=== PATIENT | male | born 1970 | race Caucasian/White ===

== ENCOUNTER 2016-11-15 12:46 | Day surgery (SDC) | payer OTHER ==
[2016-11-15] MEDS ORDERED: TRIAMCINOLONE ACETONIDE 40 MG/ML SUS ONE (14:00)
[2016-11-15 14:35] VITALS: BP 137/83; PULSE 65; RESP 14; TEMP 97.6; O2SAT 97
== END 2016-11-15 14:52 | disposition home or self-care (01) | DRG 552 ==
LOC: SURG 12:46
PROVIDERS: ATTEND Nurse Anesthetist, Certified Registered
DX: M54.42 Lumbago with sciatica, left side (principal); M54.41 Lumbago with sciatica, right side
CPT/HCPCS: J3300

== ENCOUNTER 2017-03-07 10:31 | Day surgery (SDC) | payer OTHER ==
[2017-03-07] MEDS ORDERED: BUPIVACAINE HCL 0.5% MPF 10 ML SOL ONE (11:20)
[2017-03-07] MEDS: TRIAMCINOLONE ACETONIDE 40 MG/ML SUS ONE ×4 (11:27→11:47)
[2017-03-07 12:01] VITALS: BP 107/89; PULSE 55; RESP 20; TEMP 97.6; O2SAT 97
== END 2017-03-07 12:11 | disposition home or self-care (01) | DRG 547 ==
LOC: SURG 10:31
PROVIDERS: ATTEND Nurse Anesthetist, Certified Registered
DX: M48.8X6 Other specified spondylopathies, lumbar region (principal); M54.5 Low back pain
CPT/HCPCS: J3300

== ENCOUNTER 2017-12-20 10:34 | Day surgery (SDC) | payer OTHER ==
[2017-12-20] MEDS ORDERED: BUPIVACAINE HCL 0.25% MPF 30 ML SOL INFIL ONE (11:22)
[2017-12-20] MEDS: DEXAMETHASONE SOD PHOS PF 10 MG/ML SOL IJ ONE ×2 (11:30→11:39)
[2017-12-20 12:02] VITALS: BP 164/98; PULSE 70; RESP 20; TEMP 97.7; O2SAT 97
== END 2017-12-20 12:05 | disposition home or self-care (01) | DRG 552 ==
LOC: SURG 10:34
PROVIDERS: ATTEND Nurse Anesthetist, Certified Registered
DX: M51.17 Intervertebral disc disorders with radiculopathy, lumbosacral region (principal)
CPT/HCPCS: J1100